=== PATIENT | male | born 1970 | race Hispanic/Latino ===

== ENCOUNTER 2018-05-03 20:06 | Emergency (ER) | payer OTHER ==
[2018-05-03] VITALS (8 sets, daily range): BP systolic 127–146; BP diastolic 64–101
[~2018-05-03] VITALS: Ht 177.8 cm; Wt 81.6 kg
[2018-05-03] MEDS ORDERED: MORPHINE SULFATE IM STA (21:37)
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
[2018-05-03] MEDS ORDERED: BOOSTRIX TDAP IM ONE ×2 (22:00→22:21)
[2018-05-03] MEDS ORDERED: MORPHINE SULFATE ONE (22:21)
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
--- NOTE | 2018-05-04 00:39 | NUR ---
REPORT REPORT CALLED TO SHAMA TAYLOR AT [facility] ER. QUESTIONS ADDRESSED.
[2018-05-04 06:37] VITALS: BP 137/98
== END 2018-05-03 22:54 | disposition short-term general hospital (02) ==
LOC: ER 20:06
DX: T23.202A Burn of second degree of left hand, unspecified site, initial encounter (principal); T31.0 Burns involving less than 10% of body surface; X10.2XXA Contact with fats and cooking oils, initial encounter; Y93.89 Activity, other specified; Y92.098 Other place in other non-institutional residence as the place of occurrence of the external cause; Y99.8 Other external cause status
CPT/HCPCS: 16000; 90471; 90715; 96372; 99285; J2270